=== PATIENT | female | born 1960 | race African-American/Black ===

== ENCOUNTER 2020-12-23 05:30 | Inpatient (IN) | payer OTHER ==
[2020-12-23] MEDS ORDERED: Ondansetron PF 4 MG/2 ML Vial ONE (06:13)
[2020-12-23] MEDS ORDERED: Morphine 4 MG/ML VIAL ONE (06:13)
[2020-12-23 06:19] LABS: #Eosinphils 0.2 10x3/uL (0.0-0.5); #Monocytes 0.8 10x3/uL (0.0-1.1); #Neutrophils 7.8 10x3/uL (1.5-8.4); %Basophils 0.4 % (0.0-2.0); %Eosinophils 1.5 % (0.0-6.0); %Lymphocytes 11.2 % (18.0-47.0); %Monocytes 7.6 % (0.0-10.0); %Neutrophils 78.8 % (40.0-75.0); Hemoglobin 10.4 g/dL (12.0-15.5); Mean Corpuscular HGB CONC 29.5 g/dL (32.0-36.0); Mean Corpuscular Hemoglobin 28.6 pg (27.0-33.0); Mean Corpuscular Volume 96.7 fl (81.6-98.3); Platelet Count 230 10x3/uL (150-450); RBC Distribution Width 19.5 % (11.5-14.5); Red Blood Cell (RBC) Count 3.64 10x6/uL (3.90-5.03); White Blood Cell (WBC) Count 9.9 10x3/uL (3.5-10.5)
[2020-12-23 06:40] LABS: ALT (SGPT) 10 U/L (8-55); AST (SGOT) 16 U/L (5-34); Albumin 3.2 g/dL (3.5-5.0); Alkaline Phosphatase 156 U/L (40-110); Anion Gap 12 mmol/L (10-20); BUN (Urea Nitrogen) 16 mg/dL (9.8-20.1); Bilirubin, Total 0.3 mg/dL (0.2-1.2); Calc. Creatinine Clearance 0 mL/min (70-130); Carbon Dioxide 25 mmol/L (22-29); Chloride 105 mmol/L (98-107); Globulin 2.9 g/dL (2.4-3.5); Glucose 147 mg/dL (70-105); Lipase 18 U/L (8-78); Potassium 4.3 mmol/L (3.5-5.1); Protein, Total 6.1 g/dL (6.0-8.3); Sodium 138 mmol/L (136-145)
[2020-12-23] MEDS ORDERED: Loperamide HCl 2 MG CAP ONE (08:25)
[2020-12-23] MEDS ORDERED: Pantoprazole 40 MG VIAL ONE (10:28)
[2020-12-23] MEDS ORDERED: Ondansetron PF 4 MG/2 ML Vial IVP PRN (11:18)
[2020-12-23] MEDS ORDERED: HumaLOG 300 UNITS/3 ML VIAL SC PRN (11:24)
[2020-12-23] MEDS ORDERED: Dextrose 5% in Water 1,000 ML IV PRN (11:24)
[2020-12-23] MEDS ORDERED: Dextrose 50% Abboject 50 ML SYRINGE SLOW IVP PRN (11:24)
[2020-12-23] MEDS ORDERED: HYDROcodone/Acetaminophen 5/325 mg Tablet PO PRN (11:30)
[2020-12-23 12:22] LABS: Troponin I Less than 0.010 ng/mL (< 0.028)
[2020-12-23] MEDS ORDERED: Morphine 2 MG/ML VIAL SLOW IVP PRN (13:23)
[2020-12-23] MEDS ORDERED: Pantoprazole 80 MG in Sodium Chloride 0.9% 100 ML IVPB SCH (14:00)
[2020-12-23 14:34] VITALS: BMI 37.5
[2020-12-23 16:31] LABS: Troponin I Less than 0.010 ng/mL (< 0.028)
[2020-12-23] MEDS ORDERED: diphenhydrAMINE 30 GM TUBE TOP PRN (16:53)
[2020-12-23] MEDS ORDERED: diphenhydrAMINE 25 MG CAP PO PRN (16:54)
[2020-12-23] MEDS: Gabapentin 300 MG CAP PO SCH ×2 (17:24→20:44)
[2020-12-23] MEDS: Sodium Chloride 0.9% 1,000 ML IV SCH (17:54)
[2020-12-23] MEDS: Metoprolol Tartrate 25 MG TAB PO SCH (20:44)
[2020-12-23] MEDS: Rosuvastatin 20 MG TAB PO SCH (20:44)
[2020-12-23] MEDS ORDERED: Pantoprazole 40 MG VIAL IVP SCH (21:00)
[2020-12-24] MEDS: Levothyroxine Sodium 100 MCG TAB PO SCH (05:49)
[2020-12-24 05:51] LABS: SARS-CoV-2 PCR by NAA Not Detected (NotDetected)
[2020-12-24 06:31] LABS: #Eosinphils 0.2 10x3/uL (0.0-0.5); #Monocytes 0.6 10x3/uL (0.0-1.1); #Neutrophils 5.4 10x3/uL (1.5-8.4); %Basophils 0.4 % (0.0-2.0); %Eosinophils 2.2 % (0.0-6.0); %Lymphocytes 14.9 % (18.0-47.0); %Monocytes 8.5 % (0.0-10.0); %Neutrophils 73.6 % (40.0-75.0); Hemoglobin 8.8 g/dL (12.0-15.5); Mean Corpuscular HGB CONC 29.3 g/dL (32.0-36.0); Mean Corpuscular Hemoglobin 28.6 pg (27.0-33.0); Mean Corpuscular Volume 97.4 fl (81.6-98.3); Mean Platelet Volume 9.5 fl (7.4-10.4); Platelet Count 206 10x3/uL (150-450); RBC Distribution Width 18.9 % (11.5-14.5); Red Blood Cell (RBC) Count 3.08 10x6/uL (3.90-5.03); White Blood Cell (WBC) Count 7.3 10x3/uL (3.5-10.5)
[2020-12-24 06:44] LABS: Anion Gap 13 mmol/L (10-20); BUN (Urea Nitrogen) 13 mg/dL (9.8-20.1); Calc. Creatinine Clearance 84 mL/min (70-130); Calcium 9.1 mg/dL (7.8-10.44); Carbon Dioxide 20 mmol/L (22-29); Chloride 110 mmol/L (98-107); Glucose 90 mg/dL (70-105); Potassium 4.5 mmol/L (3.5-5.1); Sodium 138 mmol/L (136-145)
[2020-12-24] MEDS ORDERED: Aspirin 81 mg Enteric Coated Tablet PO SCH (09:00)
[2020-12-24] MEDS: Spironolactone 25 MG TAB PO SCH (12:00)
[2020-12-24] MEDS: Allopurinol 100 MG TAB PO SCH (12:00)
[2020-12-24] MEDS: Gabapentin 300 MG CAP PO SCH ×3 (12:29→22:13)
[2020-12-24] MEDS: Alogliptin 6.25 MG TAB PO SCH (12:29)
[2020-12-24] MEDS: Acetaminophen 325 MG TAB PO PRN (12:30)
[2020-12-24] MEDS: Metoprolol Tartrate 25 MG TAB PO SCH ×2 (12:30→22:13)
[2020-12-24] MEDS: Sodium Chloride 0.9% 1,000 ML IV SCH ×2 (13:33→22:12)
[2020-12-24] MEDS: Loperamide HCl 2 MG CAP PO PRN (15:55)
[2020-12-24] MEDS: Pantoprazole 40 MG VIAL IVP SCH (22:13)
[2020-12-24] MEDS: Rosuvastatin 20 MG TAB PO SCH (22:13)
[2020-12-25] MEDS: Levothyroxine Sodium 100 MCG TAB PO SCH (05:06)
[2020-12-25 06:39] LABS: Hemoglobin 8.3 g/dL (12.0-15.5)
[2020-12-25] MEDS: Metoprolol Tartrate 25 MG TAB PO SCH ×2 (10:50→20:55)
[2020-12-25] MEDS ORDERED: Lidocaine 1% PF 5 ML VIAL ONE (15:25)
[2020-12-25] MEDS ORDERED: PROPOFOL 60 ML ONE (15:25)
[2020-12-25] MEDS: Allopurinol 100 MG TAB PO SCH (16:54)
[2020-12-25] MEDS: Spironolactone 25 MG TAB PO SCH (16:54)
[2020-12-25] MEDS: Alogliptin 6.25 MG TAB PO SCH (16:54)
[2020-12-25] MEDS: Gabapentin 300 MG CAP PO SCH ×2 (16:55→20:55)
[2020-12-25] MEDS: Lantus 1000 UNITS/10 ML VIAL SC SCH (16:55)
[2020-12-25] MEDS: Pantoprazole 40 MG VIAL IVP SCH (16:57)
[2020-12-25] MEDS: Sodium Chloride 0.9% 1,000 ML IV SCH ×2 (18:23→21:58)
[2020-12-25] MEDS: Pantoprazole 80 MG in Sodium Chloride 0.9% 100 ML IVPB SCH ×2 (18:24→20:55)
[2020-12-25] MEDS: Rosuvastatin 20 MG TAB PO SCH (20:55)
[2020-12-26] MEDS: Levothyroxine Sodium 100 MCG TAB PO SCH (05:24)
[2020-12-26 05:49] LABS: ALT (SGPT) 8 U/L (8-55); AST (SGOT) 16 U/L (5-34); Albumin 2.6 g/dL (3.5-5.0); Alkaline Phosphatase 132 U/L (40-110); Anion Gap 9 mmol/L (10-20); BUN (Urea Nitrogen) 8 mg/dL (9.8-20.1); Bilirubin, Total 0.2 mg/dL (0.2-1.2); Calc. Creatinine Clearance 97 mL/min (70-130); Carbon Dioxide 22 mmol/L (22-29); Chloride 110 mmol/L (98-107); Glucose 122 mg/dL (70-105); Lipase 21 U/L (8-78); Potassium 4.1 mmol/L (3.5-5.1); Protein, Total 5.6 g/dL (6.0-8.3); Sodium 137 mmol/L (136-145)
[2020-12-26 05:51] LABS: #Monocytes 0.5 10x3/uL (0.0-1.1); #Neutrophils 3.1 10x3/uL (1.5-8.4); %Basophils 0.4 % (0.0-2.0); %Eosinophils 6.1 % (0.0-6.0); %Lymphocytes 26.7 % (18.0-47.0); %Monocytes 8.8 % (0.0-10.0); %Neutrophils 57.4 % (40.0-75.0); Hemoglobin 8.8 g/dL (12.0-15.5); Mean Corpuscular HGB CONC 29.7 g/dL (32.0-36.0); Mean Corpuscular Hemoglobin 28.9 pg (27.0-33.0); Mean Platelet Volume 9.3 fl (7.4-10.4); Platelet Count 197 10x3/uL (150-450); RBC Distribution Width 18.1 % (11.5-14.5); Red Blood Cell (RBC) Count 3.05 10x6/uL (3.90-5.03); White Blood Cell (WBC) Count 5.4 10x3/uL (3.5-10.5)
[2020-12-26 05:52] LABS: #Eosinphils 0.3 10x3/uL (0.0-0.5)
[2020-12-26] MEDS: Spironolactone 25 MG TAB PO SCH (09:42)
[2020-12-26] MEDS: Gabapentin 300 MG CAP PO SCH ×3 (09:42→21:21)
[2020-12-26] MEDS: Lantus 1000 UNITS/10 ML VIAL SC SCH (09:43)
[2020-12-26] MEDS: Allopurinol 100 MG TAB PO SCH (09:43)
[2020-12-26] MEDS: Metoprolol Tartrate 25 MG TAB PO SCH ×2 (09:43→21:21)
[2020-12-26] MEDS: Alogliptin 6.25 MG TAB PO SCH (09:43)
[2020-12-26] MEDS: Sodium Chloride 0.9% 1,000 ML IV SCH (16:36)
[2020-12-26] MEDS: Rosuvastatin 20 MG TAB PO SCH (21:21)
[2020-12-27] MEDS: Sodium Chloride 0.9% 1,000 ML IV SCH ×2 (01:36→15:51)
[2020-12-27] MEDS: Acetaminophen 325 MG TAB PO PRN (01:36)
[2020-12-27] MEDS: Levothyroxine Sodium 100 MCG TAB PO SCH (06:04)
[2020-12-27] MEDS: Loperamide HCl 2 MG CAP PO PRN ×2 (06:04→20:28)
[2020-12-27 06:09] LABS: #Eosinphils 0.3 10x3/uL (0.0-0.5); #Monocytes 0.4 10x3/uL (0.0-1.1); %Basophils 0.6 % (0.0-2.0); %Eosinophils 6.5 % (0.0-6.0); %Lymphocytes 27.7 % (18.0-47.0); %Monocytes 7.9 % (0.0-10.0); %Neutrophils 57.1 % (40.0-75.0); Hemoglobin 8.9 g/dL (12.0-15.5); Mean Corpuscular HGB CONC 29.6 g/dL (32.0-36.0); Mean Corpuscular Hemoglobin 29.1 pg (27.0-33.0); Mean Corpuscular Volume 98.4 fl (81.6-98.3); Mean Platelet Volume 8.9 fl (7.4-10.4); Platelet Count 178 10x3/uL (150-450); RBC Distribution Width 17.8 % (11.5-14.5); Red Blood Cell (RBC) Count 3.06 10x6/uL (3.90-5.03); White Blood Cell (WBC) Count 5.2 10x3/uL (3.5-10.5)
[2020-12-27] MEDS: Spironolactone 25 MG TAB PO SCH (09:17)
[2020-12-27] MEDS: Gabapentin 300 MG CAP PO SCH ×3 (09:17→20:28)
[2020-12-27] MEDS: Metoprolol Tartrate 25 MG TAB PO SCH ×2 (09:17→20:28)
[2020-12-27] MEDS: Allopurinol 100 MG TAB PO SCH (09:17)
[2020-12-27] MEDS: Alogliptin 6.25 MG TAB PO SCH (09:18)
[2020-12-27] MEDS: Lantus 1000 UNITS/10 ML VIAL SC SCH (09:18)
[2020-12-27] MEDS: Rosuvastatin 20 MG TAB PO SCH (20:28)
[2020-12-28] MEDS: Sodium Chloride 0.9% 1,000 ML IV SCH ×2 (04:36→12:37)
[2020-12-28] MEDS: Levothyroxine Sodium 100 MCG TAB PO SCH (05:32)
[2020-12-28 06:44] LABS: #Eosinphils 0.4 10x3/uL (0.0-0.5); #Monocytes 0.3 10x3/uL (0.0-1.1); #Neutrophils 2.4 10x3/uL (1.5-8.4); %Basophils 0.7 % (0.0-2.0); %Eosinophils 8.9 % (0.0-6.0); %Lymphocytes 26.9 % (18.0-47.0); %Monocytes 7.8 % (0.0-10.0); %Neutrophils 55.5 % (40.0-75.0); Hemoglobin 8.8 g/dL (12.0-15.5); Mean Corpuscular HGB CONC 29.3 g/dL (32.0-36.0); Mean Corpuscular Hemoglobin 28.8 pg (27.0-33.0); Mean Platelet Volume 9.3 fl (7.4-10.4); Platelet Count 168 10x3/uL (150-450); RBC Distribution Width 17.6 % (11.5-14.5); Red Blood Cell (RBC) Count 3.06 10x6/uL (3.90-5.03); White Blood Cell (WBC) Count 4.4 10x3/uL (3.5-10.5)
[2020-12-28 07:03] LABS: ALT (SGPT) 12 U/L (8-55); AST (SGOT) 26 U/L (5-34); Albumin 2.4 g/dL (3.5-5.0); Alkaline Phosphatase 147 U/L (40-110); Anion Gap 10 mmol/L (10-20); BUN (Urea Nitrogen) 4 mg/dL (9.8-20.1); Bilirubin, Total 0.1 mg/dL (0.2-1.2); Calc. Creatinine Clearance 109 mL/min (70-130); Carbon Dioxide 22 mmol/L (22-29); Chloride 111 mmol/L (98-107); Globulin 2.9 g/dL (2.4-3.5); Glucose 82 mg/dL (70-105); Potassium 4.4 mmol/L (3.5-5.1); Protein, Total 5.3 g/dL (6.0-8.3); Sodium 139 mmol/L (136-145)
[2020-12-28] MEDS: Allopurinol 100 MG TAB PO SCH (08:31)
[2020-12-28] MEDS: Metoprolol Tartrate 25 MG TAB PO SCH (08:31)
[2020-12-28] MEDS: Gabapentin 300 MG CAP PO SCH ×2 (08:31→15:53)
[2020-12-28] MEDS: Spironolactone 25 MG TAB PO SCH (08:31)
[2020-12-28] MEDS: Alogliptin 6.25 MG TAB PO SCH (08:32)
[2020-12-28] MEDS: Lantus 1000 UNITS/10 ML VIAL SC SCH (08:32)
[2020-12-28 16:28] VITALS: BP 109/69; TEMP 97.9
[2020-12-30 13:52] LABS: Routine O & P Final report (.)
== END 2020-12-28 18:15 | disposition home or self-care (01) | DRG 381 ==
LOC: CSHERS 05:30 → CSHTELE 13:32
PROVIDERS: ADMIT Internal Medicine; ATTEND Internal Medicine
PROC: 0DB98ZX Excision of Duodenum, Via Natural or Artificial Opening Endoscopic, Diagnostic (ICD-10-PCS; principal; 2020-12-25)
PROC: 0DB68ZX Excision of Stomach, Via Natural or Artificial Opening Endoscopic, Diagnostic (ICD-10-PCS; 2020-12-25)
DX: K26.1 Acute duodenal ulcer with perforation (principal); J96.11 Chronic respiratory failure with hypoxia; Z20.822 Contact with and (suspected) exposure to COVID-19; I12.9 Hypertensive chronic kidney disease with stage 1 through stage 4 chronic kidney disease, or unspecified chronic kidney disease; E11.22 Type 2 diabetes mellitus with diabetic chronic kidney disease; N18.30 Chronic kidney disease, stage 3 unspecified; E11.42 Type 2 diabetes mellitus with diabetic polyneuropathy; I49.5 Sick sinus syndrome; C50.919 Malignant neoplasm of unspecified site of unspecified female breast; M10.9 Gout, unspecified; E78.5 Hyperlipidemia, unspecified; E03.9 Hypothyroidism, unspecified; I27.20 Pulmonary hypertension, unspecified; D63.1 Anemia in chronic kidney disease; K21.00 Gastro-esophageal reflux disease with esophagitis, without bleeding; K31.89 Other diseases of stomach and duodenum; D86.0 Sarcoidosis of lung; I25.10 Atherosclerotic heart disease of native coronary artery without angina pectoris; Z88.0 Allergy status to penicillin; Z95.0 Presence of cardiac pacemaker; Z99.81 Dependence on supplemental oxygen; Z79.82 Long term (current) use of aspirin; Z79.890 Hormone replacement therapy; Z79.4 Long term (current) use of insulin; Z79.891 Long term (current) use of opiate analgesic; Z79.899 Other long term (current) drug therapy; K70.9 Alcoholic liver disease, unspecified; Z90.49 Acquired absence of other specified parts of digestive tract; Z80.3 Family history of malignant neoplasm of breast; Z80.0 Family history of malignant neoplasm of digestive organs; Z80.8 Family history of malignant neoplasm of other organs or systems; Z83.3 Family history of diabetes mellitus
CPT/HCPCS: 36415; 36416; 71045; 74177; 74246; 80048; 80053; 82941; 83690; 84484; 85014; 85018; 85025; 86316; 87177; 87324; 87449; 87635; 88305; 93005; 94760; 96374; 96375; C9113; J1610; J1642; J2270; J2405; J2704; J3490; J7050; U0003; U0005

== ENCOUNTER 2020-12-31 09:00 | Emergency (ER) | payer OTHER ==
[2020-12-31] MEDS ORDERED: Ondansetron PF 4 MG/2 ML Vial ONE (10:22)
[2020-12-31] MEDS ORDERED: Morphine 4 MG/ML VIAL ONE (10:22)
[2020-12-31] MEDS ORDERED: Pantoprazole 40 MG VIAL ONE (10:23)
[2020-12-31 11:04] LABS: #Eosinphils 0.4 10x3/uL (0.0-0.5); #Monocytes 0.5 10x3/uL (0.0-1.1); #Neutrophils 6.6 10x3/uL (1.5-8.4); %Basophils 0.2 % (0.0-2.0); %Eosinophils 4.7 % (0.0-6.0); %Lymphocytes 13.4 % (18.0-47.0); %Monocytes 5.3 % (0.0-10.0); %Neutrophils 76.2 % (40.0-75.0); Hemoglobin 8.9 g/dL (12.0-15.5); Mean Corpuscular HGB CONC 29.9 g/dL (32.0-36.0); Mean Corpuscular Hemoglobin 29.5 pg (27.0-33.0); Mean Corpuscular Volume 98.7 fl (81.6-98.3); Mean Platelet Volume 9.1 fl (7.4-10.4); Platelet Count 200 10x3/uL (150-450); RBC Distribution Width 17.2 % (11.5-14.5); Red Blood Cell (RBC) Count 3.02 10x6/uL (3.90-5.03); White Blood Cell (WBC) Count 8.6 10x3/uL (3.5-10.5)
[2020-12-31 11:19] LABS: ALT (SGPT) 17 U/L (8-55); AST (SGOT) 26 U/L (5-34); Albumin 2.8 g/dL (3.5-5.0); Alkaline Phosphatase 177 U/L (40-110); Anion Gap 7 mmol/L (10-20); BUN (Urea Nitrogen) 9 mg/dL (9.8-20.1); Bilirubin, Total 0.2 mg/dL (0.2-1.2); Calc. Creatinine Clearance 0 mL/min (70-130); Calcium 9.4 mg/dL (7.8-10.44); Carbon Dioxide 29 mmol/L (22-29); Chloride 105 mmol/L (98-107); Globulin 3.3 g/dL (2.4-3.5); Glucose 129 mg/dL (70-105); Potassium 4.4 mmol/L (3.5-5.1); Protein, Total 6.1 g/dL (6.0-8.3); Sodium 137 mmol/L (136-145)
== END 2020-12-31 13:48 | disposition home or self-care (01) ==
LOC: CSHERS 09:00
DX: K26.9 Duodenal ulcer, unspecified as acute or chronic, without hemorrhage or perforation (principal); K21.9 Gastro-esophageal reflux disease without esophagitis; M10.9 Gout, unspecified; E11.42 Type 2 diabetes mellitus with diabetic polyneuropathy; I10 Essential (primary) hypertension; Z79.4 Long term (current) use of insulin; Z79.82 Long term (current) use of aspirin; Z79.899 Other long term (current) drug therapy
CPT/HCPCS: 74177; 80053; 85025; 96374; 96375; C9113; J1642; J2270; J2405

== ENCOUNTER 2021-01-15 12:29 | Emergency (ER) | payer OTHER ==
[2021-01-15 14:50] LABS: ALT (SGPT) 13 U/L (8-55); AST (SGOT) 19 U/L (5-34); Albumin 2.8 g/dL (3.5-5.0); Alkaline Phosphatase 141 U/L (40-110); Anion Gap 14 mmol/L (10-20); BUN (Urea Nitrogen) 11 mg/dL (9.8-20.1); Bilirubin, Total 0.1 mg/dL (0.2-1.2); CK (CPK) 20 U/L (29-168); Calc. Creatinine Clearance 0 mL/min (70-130); Calcium 8.2 mg/dL (7.8-10.44); Carbon Dioxide 29 mmol/L (22-29); Chloride 100 mmol/L (98-107); Globulin 3.3 g/dL (2.4-3.5); Potassium 3.6 mmol/L (3.5-5.1); Protein, Total 6.1 g/dL (6.0-8.3); Sodium 139 mmol/L (136-145)
[2021-01-15 14:55] LABS: #Eosinphils 0.3 10x3/uL (0.0-0.5); #Monocytes 0.5 10x3/uL (0.0-1.1); #Neutrophils 5.9 10x3/uL (1.5-8.4); %Basophils 0.4 % (0.0-2.0); %Eosinophils 3.8 % (0.0-6.0); %Lymphocytes 16.3 % (18.0-47.0); %Monocytes 6.1 % (0.0-10.0); %Neutrophils 72.5 % (40.0-75.0); Hemoglobin 8.2 g/dL (12.0-15.5); Mean Corpuscular HGB CONC 29.9 g/dL (32.0-36.0); Mean Corpuscular Hemoglobin 28.8 pg (27.0-33.0); Mean Corpuscular Volume 96.1 fl (81.6-98.3); Mean Platelet Volume 8.4 fl (7.4-10.4); Platelet Count 278 10x3/uL (150-450); RBC Distribution Width 16.1 % (11.5-14.5); Red Blood Cell (RBC) Count 2.85 10x6/uL (3.90-5.03); White Blood Cell (WBC) Count 8.1 10x3/uL (3.5-10.5)
[2021-01-15 15:34] LABS: Glucose 44 mg/dL (70-105)
[2021-01-15] MEDS ORDERED: Furosemide 40 MG/4 ML VIAL ONE (19:05)
== END 2021-01-15 19:21 | disposition home or self-care (01) ==
LOC: CSHERS 12:29
DX: K74.60 Unspecified cirrhosis of liver (principal); K21.9 Gastro-esophageal reflux disease without esophagitis; M10.9 Gout, unspecified; E11.42 Type 2 diabetes mellitus with diabetic polyneuropathy; I10 Essential (primary) hypertension; N28.9 Disorder of kidney and ureter, unspecified; G47.30 Sleep apnea, unspecified
CPT/HCPCS: 71045; 71275; 80053; 82550; 83880; 84484; 85025; 85379; 93005; 93970; 96374; 96375; J1940

== ENCOUNTER 2021-05-05 07:52 | Outpatient (CLI) | payer OTHER | END 2021-05-05 07:53 | disposition home or self-care (01) | LOC: CSHMAMMO 07:52 | PROVIDERS: ATTEND Student in an Organized Health Care Education/Training Program | DX: Z13.820 Encounter for screening for osteoporosis (principal); Z91.89 Other specified personal risk factors, not elsewhere classified; M81.0 Age-related osteoporosis without current pathological fracture; M85.851 Other specified disorders of bone density and structure, right thigh | CPT/HCPCS: 77080 ==

== ENCOUNTER 2021-10-13 14:39 | Outpatient (CLI) | payer OTHER | END 2021-10-13 14:40 | disposition home or self-care (01) | LOC: CSHCT 14:39 | PROVIDERS: ATTEND Family Medicine Sports Medicine | DX: S52.501G Unspecified fracture of the lower end of right radius, subsequent encounter for closed fracture with delayed healing (principal); S52.601G Unspecified fracture of lower end of right ulna, subsequent encounter for closed fracture with delayed healing; S52.601K Unspecified fracture of lower end of right ulna, subsequent encounter for closed fracture with nonunion ==

== ENCOUNTER 2021-12-31 11:09 | Emergency (ER) | payer OTHER ==
[2021-12-31 12:53] LABS: PTT 26.6 sec (22.0-33.0); Prothrombin Time 10.9 sec (9.5-12.1)
[2021-12-31 13:02] LABS: ALT (SGPT) 50 U/L (8-55); AST (SGOT) 41 U/L (5-34); Albumin 3.8 g/dL (3.4-4.8); Alkaline Phosphatase 257 U/L (40-110); Anion Gap 19 mmol/L (10-20); BUN (Urea Nitrogen) 36 mg/dL (9.8-20.1); Bilirubin, Total 0.4 mg/dL (0.2-1.2); Calc. Creatinine Clearance 0 mL/min (70-130); Calcium 9.7 mg/dL (7.8-10.44); Carbon Dioxide 32 mmol/L (23-31); Chloride 91 mmol/L (98-107); Globulin 4.5 g/dL (2.4-3.5); Glucose 157 mg/dL (80-115); Potassium 4.3 mmol/L (3.5-5.1); Protein, Total 8.3 g/dL (5.8-8.1); Sodium 138 mmol/L (136-145)
[2021-12-31 13:36] LABS: #Eosinphils 0.2 10x3/uL (0.0-0.5); #Monocytes 0.3 10x3/uL (0.0-1.1); #Neutrophils 7.2 10x3/uL (1.5-8.4); %Basophils 0.3 % (0.0-2.0); %Eosinophils 2.4 % (0.0-6.0); %Lymphocytes 13.5 % (18.0-47.0); %Monocytes 3.7 % (0.0-10.0); %Neutrophils 79.7 % (40.0-75.0); Hemoglobin 12.4 g/dL (12.0-15.5); Mean Corpuscular HGB CONC 30.8 g/dL (32.0-36.0); Mean Corpuscular Hemoglobin 28.1 pg (27.0-33.0); Mean Corpuscular Volume 91.4 fl (81.6-98.3); Mean Platelet Volume 10.1 fl (7.4-10.4); Platelet Count 175 10x3/uL (150-450); RBC Distribution Width 15.4 % (11.5-14.5); Red Blood Cell (RBC) Count 4.41 10x6/uL (3.90-5.03)
[2021-12-31] MEDS ORDERED: traMADol HCl 50 MG TAB ONE (14:36)
== END 2021-12-31 14:40 | disposition home or self-care (01) ==
LOC: CSHERS 11:09
DX: M79.604 Pain in right leg (principal); M79.605 Pain in left leg; K21.9 Gastro-esophageal reflux disease without esophagitis; E11.40 Type 2 diabetes mellitus with diabetic neuropathy, unspecified; M10.9 Gout, unspecified; G47.30 Sleep apnea, unspecified; I10 Essential (primary) hypertension
CPT/HCPCS: 36415; 80053; 85025; 85610; 85730

== ENCOUNTER 2022-04-12 07:40 | Outpatient (CLI) | payer OTHER | END 2022-04-12 07:41 | disposition home or self-care (01) | LOC: CSHULT 07:40 | PROVIDERS: ATTEND Internal Medicine Gastroenterology | DX: K74.60 Unspecified cirrhosis of liver (principal); R94.5 Abnormal results of liver function studies | CPT/HCPCS: 76700 ==

== ENCOUNTER 2022-07-11 10:14 | Outpatient (CLI) | payer OTHER | END 2022-07-11 10:15 | disposition home or self-care (01) | LOC: CSHCT 10:14 | PROVIDERS: ATTEND Internal Medicine Pulmonary Disease | DX: I27.20 Pulmonary hypertension, unspecified (principal); D86.9 Sarcoidosis, unspecified; J47.9 Bronchiectasis, uncomplicated; K74.60 Unspecified cirrhosis of liver | CPT/HCPCS: 71250 ==

== ENCOUNTER 2022-09-06 10:50 | Inpatient (IN) | payer OTHER ==
[2022-09-06 11:29] LABS: #Eosinphils 0.3 10x3/uL (0.0-0.5); #Monocytes 0.3 10x3/uL (0.0-1.1); #Neutrophils 5.7 10x3/uL (1.5-8.4); %Basophils 0.4 % (0.0-2.0); %Eosinophils 3.8 % (0.0-6.0); %Lymphocytes 14.4 % (18.0-47.0); %Monocytes 4.3 % (0.0-10.0); %Neutrophils 76.7 % (40.0-75.0); Hemoglobin 11.2 g/dL (12.0-15.5); Mean Corpuscular HGB CONC 30.9 g/dL (32.0-36.0); Mean Corpuscular Hemoglobin 28.4 pg (27.0-33.0); Mean Corpuscular Volume 92.1 fl (81.6-98.3); Mean Platelet Volume 8.9 fl (7.4-10.4); Platelet Count 236 10x3/uL (150-450); RBC Distribution Width 16.7 % (11.5-14.5); Red Blood Cell (RBC) Count 3.94 10x6/uL (3.90-5.03); White Blood Cell (WBC) Count 7.4 10x3/uL (3.5-10.5)
[2022-09-06 11:34] LABS: ALT (SGPT) 13 U/L (8-55); AST (SGOT) 23 U/L (5-34); Albumin 3.4 g/dL (3.4-4.8); Alkaline Phosphatase 131 U/L (40-110); Anion Gap 14 mmol/L (10-20); BUN (Urea Nitrogen) 28 mg/dL (9.8-20.1); Bilirubin, Total 0.3 mg/dL (0.2-1.2); Calc. Creatinine Clearance 0 mL/min (70-130); Calcium 8.8 mg/dL (7.8-10.44); Carbon Dioxide 26 mmol/L (23-31); Chloride 102 mmol/L (98-107); Estimated GFR 31; Globulin 3.3 g/dL (2.4-3.5); Glucose 219 mg/dL (80-115); Potassium 4.3 mmol/L (3.5-5.1); Protein, Total 6.7 g/dL (5.8-8.1); Sodium 138 mmol/L (136-145)
[2022-09-06] MEDS ORDERED: Ondansetron ODT 4 MG TAB PO PRN (13:03)
[2022-09-06] MEDS ORDERED: Ondansetron PF 4 MG/2 ML Vial IVP PRN (13:03)
[2022-09-06] MEDS ORDERED: Dextrose 5% in Water 1,000 ML IV PRN (13:07)
[2022-09-06] MEDS ORDERED: HumaLOG 300 UNITS/3 ML VIAL SC PRN (13:07)
[2022-09-06] MEDS ORDERED: Dextrose 50% Abboject 50 ML SYRINGE SLOW IVP PRN (13:07)
[2022-09-06] MEDS ORDERED: Furosemide 40 MG/4 ML VIAL ONE (13:12)
[2022-09-06 16:09] LABS: SARS-CoV-2 NAA Rapid Test Not Detected (NotDetected)
[2022-09-06 21:39] VITALS: BMI 37.1
[2022-09-07] MEDS: Acetaminophen 325 MG TAB PO PRN (03:32)
[2022-09-07] MEDS: Levothyroxine Sodium 100 MCG TAB PO SCH (05:08)
[2022-09-07] MEDS: HumaLOG 300 UNITS/3 ML VIAL SC PRN ×2 (05:33→17:06)
[2022-09-07 05:56] LABS: #Eosinphils 0.3 10x3/uL (0.0-0.5); #Monocytes 0.3 10x3/uL (0.0-1.1); #Neutrophils 6.5 10x3/uL (1.5-8.4); %Basophils 0.3 % (0.0-2.0); %Eosinophils 3.1 % (0.0-6.0); %Lymphocytes 11.2 % (18.0-47.0); %Monocytes 3.9 % (0.0-10.0); %Neutrophils 81.2 % (40.0-75.0); Hemoglobin 10.4 g/dL (12.0-15.5); Mean Corpuscular HGB CONC 30.5 g/dL (32.0-36.0); Mean Corpuscular Volume 91.7 fl (81.6-98.3); Platelet Count 238 10x3/uL (150-450); RBC Distribution Width 16.3 % (11.5-14.5); Red Blood Cell (RBC) Count 3.72 10x6/uL (3.90-5.03)
[2022-09-07 06:03] LABS: Anion Gap 14 mmol/L (10-20); BUN (Urea Nitrogen) 24 mg/dL (9.8-20.1); Calc. Creatinine Clearance 49 mL/min (70-130); Calcium 8.9 mg/dL (7.8-10.44); Carbon Dioxide 28 mmol/L (23-31); Chloride 102 mmol/L (98-107); Estimated GFR 37; Glucose 184 mg/dL (80-115); Sodium 140 mmol/L (136-145)
[2022-09-07] MEDS ORDERED: Lantus 1000 UNITS/10 ML VIAL SC SCH (09:00)
[2022-09-07] MEDS ORDERED: traMADol HCl 50 MG TAB PO PRN (14:19)
[2022-09-07] MEDS ORDERED: Furosemide 40 MG/4 ML VIAL SLOW IVP SCH (15:00)
[2022-09-07] MEDS: Gabapentin 300 MG CAP PO SCH (16:56)
[2022-09-08] MEDS: Metoprolol Tartrate 25 MG TAB PO SCH ×3 (00:01→21:44)
[2022-09-08] MEDS: Gabapentin 300 MG CAP PO SCH ×4 (00:01→21:44)
[2022-09-08] MEDS: Rosuvastatin 20 MG TAB PO SCH ×2 (00:01→21:44)
[2022-09-08] MEDS: methylPREDNISolone Sod Succ 40 MG VIAL IVP SCH ×2 (00:03→08:45)
[2022-09-08] MEDS: Lantus 1000 UNITS/10 ML VIAL SC SCH ×3 (00:03→21:44)
[2022-09-08] MEDS: Acetaminophen 325 MG TAB PO PRN ×2 (00:13→08:42)
[2022-09-08] MEDS: Levothyroxine Sodium 100 MCG TAB PO SCH (05:45)
[2022-09-08] MEDS: Furosemide 40 MG/4 ML VIAL SLOW IVP SCH ×2 (05:46→13:03)
[2022-09-08] MEDS: HumaLOG 300 UNITS/3 ML VIAL SC PRN ×2 (06:01→11:44)
[2022-09-08 06:54] LABS: #Monocytes 0.1 10x3/uL (0.0-1.1); #Neutrophils 7.9 10x3/uL (1.5-8.4); %Basophils 0.1 % (0.0-2.0); %Monocytes 0.6 % (0.0-10.0); %Neutrophils 94.1 % (40.0-75.0); Hemoglobin 11.7 g/dL (12.0-15.5); Mean Corpuscular HGB CONC 30.4 g/dL (32.0-36.0); Mean Corpuscular Hemoglobin 28.1 pg (27.0-33.0); Mean Corpuscular Volume 92.3 fl (81.6-98.3); Mean Platelet Volume 10.6 fl (7.4-10.4); Platelet Count 168 10x3/uL (150-450); RBC Distribution Width 16.5 % (11.5-14.5); Red Blood Cell (RBC) Count 4.17 10x6/uL (3.90-5.03); White Blood Cell (WBC) Count 8.4 10x3/uL (3.5-10.5)
[2022-09-08 07:02] LABS: Anion Gap 14 mmol/L (10-20); BUN (Urea Nitrogen) 21 mg/dL (9.8-20.1); Calc. Creatinine Clearance 56 mL/min (70-130); Calcium 9.6 mg/dL (7.8-10.44); Carbon Dioxide 28 mmol/L (23-31); Chloride 101 mmol/L (98-107); Estimated GFR 44; Glucose 283 mg/dL (80-115); Potassium 4.7 mmol/L (3.5-5.1); Sodium 138 mmol/L (136-145)
[2022-09-08] MEDS: Spironolactone 25 MG TAB PO SCH (08:42)
[2022-09-08] MEDS: Aspirin Chewable 81 MG TAB PO SCH (08:43)
[2022-09-08] MEDS: Allopurinol 100 MG TAB PO SCH (08:43)
[2022-09-08] MEDS: Empagliflozin 25 MG TAB PO SCH (08:43)
[2022-09-09] MEDS: Furosemide 40 MG/4 ML VIAL SLOW IVP SCH (05:15)
[2022-09-09] MEDS: Levothyroxine Sodium 100 MCG TAB PO SCH (05:15)
[2022-09-09 05:40] LABS: Anion Gap 18 mmol/L (10-20); BUN (Urea Nitrogen) 31 mg/dL (9.8-20.1); Calc. Creatinine Clearance 49 mL/min (70-130); Calcium 10.2 mg/dL (7.8-10.44); Carbon Dioxide 26 mmol/L (23-31); Chloride 97 mmol/L (98-107); Estimated GFR 37; Glucose 229 mg/dL (80-115); Potassium 4.3 mmol/L (3.5-5.1); Sodium 137 mmol/L (136-145)
[2022-09-09 06:16] LABS: #Monocytes 0.6 10x3/uL (0.0-1.1); #Neutrophils 10.4 10x3/uL (1.5-8.4); %Basophils 0.2 % (0.0-2.0); %Eosinophils 0.3 % (0.0-6.0); %Lymphocytes 8.1 % (18.0-47.0); %Monocytes 4.8 % (0.0-10.0); %Neutrophils 86.1 % (40.0-75.0); Hemoglobin 11.5 g/dL (12.0-15.5); Mean Corpuscular HGB CONC 30.7 g/dL (32.0-36.0); Mean Corpuscular Volume 91.2 fl (81.6-98.3); Mean Platelet Volume 9.4 fl (7.4-10.4); Platelet Count 260 10x3/uL (150-450); RBC Distribution Width 16.3 % (11.5-14.5); Red Blood Cell (RBC) Count 4.11 10x6/uL (3.90-5.03); White Blood Cell (WBC) Count 12.1 10x3/uL (3.5-10.5)
[2022-09-09] MEDS: HumaLOG 300 UNITS/3 ML VIAL SC PRN (07:44)
[2022-09-09] MEDS: Empagliflozin 25 MG TAB PO SCH (09:01)
[2022-09-09] MEDS: Gabapentin 300 MG CAP PO SCH (09:01)
[2022-09-09] MEDS: Aspirin Chewable 81 MG TAB PO SCH (09:01)
[2022-09-09] MEDS: Allopurinol 100 MG TAB PO SCH (09:02)
[2022-09-09] MEDS: Spironolactone 25 MG TAB PO SCH (09:02)
[2022-09-09] MEDS: Metoprolol Tartrate 25 MG TAB PO SCH (09:02)
[2022-09-09] MEDS: Lantus 1000 UNITS/10 ML VIAL SC SCH (09:02)
[2022-09-09 10:46] VITALS: BP 137/82; TEMP 97.8
== END 2022-09-09 11:45 | disposition home or self-care (01) | DRG 196 ==
LOC: CSHERS 10:50 → CSHERHOLD 15:04 → CSHTELE 21:40
PROVIDERS: ADMIT Family Medicine; ATTEND Family Medicine
DX: D86.89 Sarcoidosis of other sites (principal); J96.21 Acute and chronic respiratory failure with hypoxia; I13.0 Hypertensive heart and chronic kidney disease with heart failure and stage 1 through stage 4 chronic kidney disease, or unspecified chronic kidney disease; I50.32 Chronic diastolic (congestive) heart failure; E11.22 Type 2 diabetes mellitus with diabetic chronic kidney disease; E11.40 Type 2 diabetes mellitus with diabetic neuropathy, unspecified; E78.5 Hyperlipidemia, unspecified; E03.9 Hypothyroidism, unspecified; Z96.1 Presence of intraocular lens; N18.32 Chronic kidney disease, stage 3b; I27.20 Pulmonary hypertension, unspecified; I25.10 Atherosclerotic heart disease of native coronary artery without angina pectoris; K21.9 Gastro-esophageal reflux disease without esophagitis; Z20.822 Contact with and (suspected) exposure to COVID-19; Z96.612 Presence of left artificial shoulder joint; Z85.3 Personal history of malignant neoplasm of breast; Z90.11 Acquired absence of right breast and nipple; Z99.81 Dependence on supplemental oxygen; Z95.810 Presence of automatic (implantable) cardiac defibrillator; Z88.0 Allergy status to penicillin; Z98.42 Cataract extraction status, left eye; Z88.8 Allergy status to other drugs, medicaments and biological substances; Z98.41 Cataract extraction status, right eye; Z79.899 Other long term (current) drug therapy; Z80.0 Family history of malignant neoplasm of digestive organs; Z79.890 Hormone replacement therapy; Z79.82 Long term (current) use of aspirin; Z90.49 Acquired absence of other specified parts of digestive tract; Z80.42 Family history of malignant neoplasm of prostate; Z98.890 Other specified postprocedural states
CPT/HCPCS: 36415; 36416; 71045; 80048; 80053; 83880; 84484; 85025; 93005; 94640; 94760; J1815; J1940; J2920; J7620; U0002

== ENCOUNTER 2022-12-07 09:46 | Emergency (ER) | payer OTHER ==
[2022-12-07] MEDS ORDERED: Ondansetron PF 4 MG/2 ML Vial ONE ×2 (10:53→13:18)
[2022-12-07 11:24] LABS: #Eosinphils 0.2 10x3/uL (0.0-0.5); #Monocytes 0.3 10x3/uL (0.0-1.1); #Neutrophils 7.8 10x3/uL (1.5-8.4); %Basophils 0.3 % (0.0-2.0); %Eosinophils 2.6 % (0.0-6.0); %Lymphocytes 10.6 % (18.0-47.0); %Monocytes 3.3 % (0.0-10.0); %Neutrophils 82.8 % (40.0-75.0); Hemoglobin 12.7 g/dL (12.0-15.5); Mean Corpuscular HGB CONC 30.6 g/dL (32.0-36.0); Mean Corpuscular Hemoglobin 28.3 pg (27.0-33.0); Mean Corpuscular Volume 92.6 fl (81.6-98.3); Mean Platelet Volume 9.5 fl (7.4-10.4); Platelet Count 243 10x3/uL (150-450); RBC Distribution Width 18.2 % (11.5-14.5); Red Blood Cell (RBC) Count 4.48 10x6/uL (3.90-5.03); White Blood Cell (WBC) Count 9.4 10x3/uL (3.5-10.5)
[2022-12-07 11:48] LABS: ALT (SGPT) 15 U/L (8-55); AST (SGOT) 23 U/L (5-34); Albumin 3.8 g/dL (3.4-4.8); Alkaline Phosphatase 93 U/L (40-110); Anion Gap 19 mmol/L (10-20); BUN (Urea Nitrogen) 50 mg/dL (9.8-20.1); Bilirubin, Total 0.4 mg/dL (0.2-1.2); Calc. Creatinine Clearance 0 mL/min (70-130); Calcium 9.8 mg/dL (7.8-10.44); Carbon Dioxide 32 mmol/L (23-31); Chloride 90 mmol/L (98-107); Estimated GFR 33; Globulin 3.7 g/dL (2.4-3.5); Glucose 154 mg/dL (80-115); Lipase 36 U/L (8-78); Potassium 3.6 mmol/L (3.5-5.1); Protein, Total 7.5 g/dL (5.8-8.1); Sodium 137 mmol/L (136-145)
[2022-12-07] MEDS ORDERED: Acetaminophen 500 MG TAB ONE (13:22)
[2022-12-07] MEDS ORDERED: Iopamidol 300 61% 100 ML VIAL FS ONE (18:13)
== END 2022-12-07 13:28 | disposition home or self-care (01) ==
LOC: CSHERS 09:46
DX: R11.2 Nausea with vomiting, unspecified (principal); R10.9 Unspecified abdominal pain; I11.0 Hypertensive heart disease with heart failure; I50.9 Heart failure, unspecified; E78.5 Hyperlipidemia, unspecified; E11.9 Type 2 diabetes mellitus without complications; K21.9 Gastro-esophageal reflux disease without esophagitis; I25.10 Atherosclerotic heart disease of native coronary artery without angina pectoris; Z79.899 Other long term (current) drug therapy; Z79.82 Long term (current) use of aspirin; Z79.84 Long term (current) use of oral hypoglycemic drugs
CPT/HCPCS: 36415; 71045; 74177; 80053; 83690; 84484; 85025; 93005; 96374; J2405; Q9967

== ENCOUNTER 2023-05-11 08:24 | Outpatient (CLI) | payer OTHER | END 2023-05-11 08:25 | disposition home or self-care (01) | LOC: CSHWCC 08:24 | PROVIDERS: ATTEND Nurse Practitioner Family | DX: R60.0 Localized edema (principal); I87.313 Chronic venous hypertension (idiopathic) with ulcer of bilateral lower extremity; L97.822 Non-pressure chronic ulcer of other part of left lower leg with fat layer exposed; L97.812 Non-pressure chronic ulcer of other part of right lower leg with fat layer exposed | CPT/HCPCS: 29581; 99203; G0463 ==

== ENCOUNTER 2023-07-10 14:06 | Emergency (ER) | payer OTHER ==
[2023-07-10 15:14] LABS: #Eosinphils 0.3 10x3/uL (0.0-0.5); #Monocytes 0.3 10x3/uL (0.0-1.1); #Neutrophils 5.5 10x3/uL (1.5-8.4); %Basophils 0.4 % (0.0-2.0); %Eosinophils 3.5 % (0.0-6.0); %Lymphocytes 14.4 % (18.0-47.0); %Monocytes 3.7 % (0.0-10.0); %Neutrophils 77.6 % (40.0-75.0); Hematocrit 35.5 % (34.9-44.5); Mean Corpuscular Hemoglobin 28.6 pg (27.0-33.0); Mean Corpuscular Volume 92.4 fl (81.6-98.3); Mean Platelet Volume 9.2 fl (7.4-10.4); Platelet Count 284 10x3/uL (150-450); RBC Distribution Width 15.8 % (11.5-14.5); Red Blood Cell (RBC) Count 3.84 10x6/uL (3.90-5.03); White Blood Cell (WBC) Count 7.1 10x3/uL (3.5-10.5)
[2023-07-10 15:22] LABS: ALT (SGPT) 11 U/L (8-55); AST (SGOT) 22 U/L (5-34); Albumin 3.5 g/dL (3.4-4.8); Alkaline Phosphatase 94 U/L (40-110); Anion Gap 16 mmol/L (10-20); BUN (Urea Nitrogen) 22 mg/dL (9.8-20.1); Bilirubin, Total 0.2 mg/dL (0.2-1.2); Calc. Creatinine Clearance 0 mL/min (70-130); Calcium 8.3 mg/dL (7.8-10.44); Carbon Dioxide 24 mmol/L (23-31); Chloride 103 mmol/L (98-107); Estimated GFR 40; Globulin 3.5 g/dL (2.4-3.5); Glucose 138 mg/dL (80-115); Potassium 4.1 mmol/L (3.5-5.1); Sodium 139 mmol/L (136-145)
[2023-07-10 15:28] LABS: Troponin I Less than 0.010 ng/mL (< 0.028)
== END 2023-07-10 16:30 | disposition home or self-care (01) ==
LOC: CSHERS 14:06
DX: E11.22 Type 2 diabetes mellitus with diabetic chronic kidney disease (principal); N18.6 End stage renal disease; I13.2 Hypertensive heart and chronic kidney disease with heart failure and with stage 5 chronic kidney disease, or end stage renal disease; M79.605 Pain in left leg; M79.604 Pain in right leg; E78.5 Hyperlipidemia, unspecified; K21.9 Gastro-esophageal reflux disease without esophagitis; I25.10 Atherosclerotic heart disease of native coronary artery without angina pectoris; I50.9 Heart failure, unspecified
CPT/HCPCS: 36416; 71045; 80053; 83880; 84484; 85025; 93005

== ENCOUNTER 2023-08-07 09:29 | Emergency (ER) | payer OTHER, SELFPAY ==
[2023-08-07 11:52] LABS: #Eosinphils 0.2 10x3/uL (0.0-0.5); #Monocytes 0.4 10x3/uL (0.0-1.1); #Neutrophils 5.5 10x3/uL (1.5-8.4); %Basophils 0.1 % (0.0-2.0); %Eosinophils 2.3 % (0.0-6.0); %Monocytes 5.1 % (0.0-10.0); %Neutrophils 79.1 % (40.0-75.0); Hematocrit 34.7 % (34.9-44.5); Hemoglobin 10.4 g/dL (12.0-15.5); Mean Corpuscular Hemoglobin 28.7 pg (27.0-33.0); Mean Corpuscular Volume 95.9 fl (81.6-98.3); Mean Platelet Volume 9.1 fl (7.4-10.4); Platelet Count 217 10x3/uL (150-450); RBC Distribution Width 16.4 % (11.5-14.5); Red Blood Cell (RBC) Count 3.62 10x6/uL (3.90-5.03)
[2023-08-07 12:08] LABS: ALT (SGPT) 7 U/L (8-55); AST (SGOT) 14 U/L (5-34); Albumin 3.4 g/dL (3.4-4.8); Alkaline Phosphatase 111 U/L (40-110); Anion Gap 13 mmol/L (10-20); BUN (Urea Nitrogen) 15 mg/dL (9.8-20.1); Bilirubin, Total 0.4 mg/dL (0.2-1.2); Calc. Creatinine Clearance 0 mL/min (70-130); Calcium 8.3 mg/dL (7.8-10.44); Carbon Dioxide 22 mmol/L (23-31); Chloride 110 mmol/L (98-107); Estimated GFR 52; Globulin 3.3 g/dL (2.4-3.5); Glucose 137 mg/dL (80-115); Magnesium 1.7 mg/dL (1.6-2.6); Potassium 4.5 mmol/L (3.5-5.1); Protein, Total 6.7 g/dL (5.8-8.1); Sodium 140 mmol/L (136-145)
[2023-08-07 12:15] LABS: Troponin I Less than 0.010 ng/mL (< 0.028)
[2023-08-07 14:37] LABS: Bilirubin Neg (Negative); Blood, Urine 50 (Negative); Clarity Slightly Cloudy (Clear); Glucose, Urine (Dipstick) Normal (Negative); Ketone, Urine Negative (Negative); Leukocyte 25 (Negative); Nitrite Negative (Negative); Protein, Urine (Dipstick) 100 mg/dl (Neg-Trace)
[2023-08-07 14:58] LABS: Bacteria/HPF None Seen HPF (None Seen); CAUTI Indications for Culture Pelvic or flank pain; RBC/HPF 0-3 HPF (0-3); Squamous Epithelial 0-3 HPF (0-3); WBC/HPF 0-3 HPF (0-3)
[2023-08-07 14:59] LABS: Urine Culture Reflex No No
== END 2023-08-07 15:48 | disposition home or self-care (01) ==
LOC: CSHERS 09:29
DX: I87.8 Other specified disorders of veins (principal); I25.10 Atherosclerotic heart disease of native coronary artery without angina pectoris; K21.9 Gastro-esophageal reflux disease without esophagitis; E78.5 Hyperlipidemia, unspecified; I13.2 Hypertensive heart and chronic kidney disease with heart failure and with stage 5 chronic kidney disease, or end stage renal disease; E11.22 Type 2 diabetes mellitus with diabetic chronic kidney disease; N18.6 End stage renal disease; I50.9 Heart failure, unspecified; Z99.2 Dependence on renal dialysis
CPT/HCPCS: 36415; 71045; 80053; 81001; 83735; 83880; 84484; 85025; 93005

== ENCOUNTER 2023-08-10 10:22 | Outpatient (CLI) | payer SELFPAY | END 2023-08-10 10:23 | disposition home or self-care (01) | LOC: CSHWCC 10:22 | PROVIDERS: ATTEND Physician Assistant | DX: I87.313 Chronic venous hypertension (idiopathic) with ulcer of bilateral lower extremity (principal); I89.0 Lymphedema, not elsewhere classified; E10.22 Type 1 diabetes mellitus with diabetic chronic kidney disease; N18.6 End stage renal disease; L97.919 Non-pressure chronic ulcer of unspecified part of right lower leg with unspecified severity; L97.929 Non-pressure chronic ulcer of unspecified part of left lower leg with unspecified severity | CPT/HCPCS: 29581; 74183; 99213; G0463 ==

== ENCOUNTER 2023-08-14 13:15 | Outpatient (CLI) | payer OTHER | END 2023-08-14 13:16 | disposition home or self-care (01) | LOC: CSHWCC 13:15 | PROVIDERS: ATTEND Physician Assistant | DX: I87.313 Chronic venous hypertension (idiopathic) with ulcer of bilateral lower extremity (principal); E10.22 Type 1 diabetes mellitus with diabetic chronic kidney disease; N18.6 End stage renal disease; I89.0 Lymphedema, not elsewhere classified | CPT/HCPCS: 29581 ==

== ENCOUNTER 2023-08-18 11:22 | Outpatient (CLI) | payer OTHER | END 2023-08-18 11:23 | disposition home or self-care (01) | LOC: CSHWCC 11:22 | PROVIDERS: ATTEND Physician Assistant | DX: I87.313 Chronic venous hypertension (idiopathic) with ulcer of bilateral lower extremity (principal); E10.22 Type 1 diabetes mellitus with diabetic chronic kidney disease; N18.6 End stage renal disease; I89.0 Lymphedema, not elsewhere classified | CPT/HCPCS: 29581 ==

== ENCOUNTER 2023-08-21 13:02 | Outpatient (CLI) | payer OTHER | END 2023-08-21 13:03 | disposition home or self-care (01) | LOC: CSHWCC 13:02 | PROVIDERS: ATTEND Physician Assistant | DX: I87.313 Chronic venous hypertension (idiopathic) with ulcer of bilateral lower extremity (principal); E10.22 Type 1 diabetes mellitus with diabetic chronic kidney disease; N18.6 End stage renal disease; I89.0 Lymphedema, not elsewhere classified | CPT/HCPCS: 29581 ==

== ENCOUNTER 2023-08-23 10:31 | Outpatient (CLI) | payer OTHER | END 2023-08-23 10:32 | disposition home or self-care (01) | LOC: CSHWCC 10:31 | PROVIDERS: ATTEND Physician Assistant | DX: I87.313 Chronic venous hypertension (idiopathic) with ulcer of bilateral lower extremity (principal); E10.22 Type 1 diabetes mellitus with diabetic chronic kidney disease; N18.6 End stage renal disease; I89.0 Lymphedema, not elsewhere classified | CPT/HCPCS: 29581 ==

== ENCOUNTER 2023-08-29 14:02 | Outpatient (CLI) | payer OTHER | END 2023-08-29 14:03 | disposition home or self-care (01) | LOC: CSHWCC 14:02 | PROVIDERS: ATTEND Preventive Medicine Undersea and Hyperbaric Medicine | DX: I87.313 Chronic venous hypertension (idiopathic) with ulcer of bilateral lower extremity (principal); I89.0 Lymphedema, not elsewhere classified; L97.919 Non-pressure chronic ulcer of unspecified part of right lower leg with unspecified severity; L97.929 Non-pressure chronic ulcer of unspecified part of left lower leg with unspecified severity; E10.22 Type 1 diabetes mellitus with diabetic chronic kidney disease; N18.6 End stage renal disease | CPT/HCPCS: 29581 ==

== ENCOUNTER 2023-10-17 10:43 | Outpatient (CLI) | payer SELFPAY | END 2023-10-17 10:44 | disposition home or self-care (01) | LOC: CSHWCC 10:43 | PROVIDERS: ATTEND Preventive Medicine Undersea and Hyperbaric Medicine | DX: I87.311 Chronic venous hypertension (idiopathic) with ulcer of right lower extremity (principal); I89.0 Lymphedema, not elsewhere classified; E10.22 Type 1 diabetes mellitus with diabetic chronic kidney disease; N18.6 End stage renal disease ==

== ENCOUNTER 2023-10-24 14:46 | Outpatient (CLI) | payer SELFPAY | END 2023-10-24 14:47 | disposition home or self-care (01) | LOC: CSHWCC 14:46 | PROVIDERS: ATTEND Physician Assistant | DX: I87.311 Chronic venous hypertension (idiopathic) with ulcer of right lower extremity (principal); L97.919 Non-pressure chronic ulcer of unspecified part of right lower leg with unspecified severity; E10.22 Type 1 diabetes mellitus with diabetic chronic kidney disease; N18.6 End stage renal disease; I89.0 Lymphedema, not elsewhere classified; Z99.2 Dependence on renal dialysis | CPT/HCPCS: 99213; G0463 ==

== ENCOUNTER 2024-02-08 10:43 | Outpatient (CLI) | payer OTHER | END 2024-02-08 10:44 | disposition home or self-care (01) | LOC: CSHWCC 10:43 | PROVIDERS: ATTEND Nurse Practitioner Family | DX: E11.622 Type 2 diabetes mellitus with other skin ulcer (principal); L97.212 Non-pressure chronic ulcer of right calf with fat layer exposed; I87.311 Chronic venous hypertension (idiopathic) with ulcer of right lower extremity; I89.0 Lymphedema, not elsewhere classified | CPT/HCPCS: 99212; G0463 ==

== ENCOUNTER 2024-02-23 10:58 | Outpatient (CLI) | payer BC | END 2024-02-23 10:59 | disposition home or self-care (01) | LOC: CSHULT 10:58 | PROVIDERS: ATTEND Internal Medicine | DX: K74.60 Unspecified cirrhosis of liver (principal); K75.81 Nonalcoholic steatohepatitis (NASH); R60.0 Localized edema; K59.09 Other constipation | CPT/HCPCS: 76700 ==

== ENCOUNTER 2024-08-18 02:21 | Emergency (ER) | payer BC ==
[2024-08-18] MEDS ORDERED: Acetaminophen 500 MG TAB ONE (02:52)
[2024-08-18 03:19] LABS: #Basophils 0.02 10x3/uL (0.0-0.2); #Eosinophils 0.16 10x3/uL (0.0-0.5); #Monocytes 0.27 10x3/uL (0.0-1.1); #Neutrophils 6.77 10x3/uL (1.5-8.4); %Basophils 0.3 % (0.0-2.0); %Lymphocytes 7.6 % (18.0-47.0); %Monocytes 3.4 % (0.0-10.0); %Neutrophils 86.2 % (40.0-75.0); Hematocrit 35.2 % (34.9-44.5); Hemoglobin 10.2 g/dL (12.0-15.5); Mean Corpuscular Hemoglobin 26.7 pg (27.0-33.0); Mean Corpuscular Volume 92.1 fL (81.6-98.3); Mean Platelet Volume 8.7 fL (7.4-10.4); Platelet Count 147 10x3/uL (150-450); RBC Distribution Width 16.7 % (11.5-14.5); Red Blood Cell (RBC) Count 3.82 10x6/uL (3.90-5.03); White Blood Cell (WBC) Count 7.9 10x3/uL (3.5-10.5)
[2024-08-18 03:23] LABS: INR-International Normal Ratio 1.1; PTT 29.3 sec (22.0-33.0); Prothrombin Time 11.5 sec (9.5-12.1)
[2024-08-18 03:28] LABS: ALT (SGPT) 17 U/L (8-55); AST (SGOT) 20 U/L (5-34); Albumin 2.9 g/dL (3.4-4.8); Alkaline Phosphatase 91 U/L (40-110); Anion Gap 14 mmol/L (10-20); BUN (Urea Nitrogen) 33 mg/dL (9.8-20.1); Bilirubin, Total 0.4 mg/dL (0.2-1.2); Calc. Creatinine Clearance 0 mL/min (70-130); Calcium 10.3 mg/dL (7.8-10.44); Carbon Dioxide 28 mmol/L (23-31); Chloride 103 mmol/L (98-107); Estimated GFR 26; Globulin 4.2 g/dL (2.4-3.5); Glucose 136 mg/dL (80-115); Lipase 22 U/L (8-78); Magnesium 1.3 mg/dL (1.6-2.6); Potassium 3.7 mmol/L (3.5-5.1); Protein, Total 7.1 g/dL (5.8-8.1); Sodium 141 mmol/L (136-145)
[2024-08-18 03:34] LABS: Troponin I Less than 0.010 ng/mL (< 0.028)
== END 2024-08-18 04:01 | disposition home or self-care (01) ==
LOC: CSHERS 02:21
DX: B34.9 Viral infection, unspecified (principal); I13.2 Hypertensive heart and chronic kidney disease with heart failure and with stage 5 chronic kidney disease, or end stage renal disease; I50.9 Heart failure, unspecified; N18.6 End stage renal disease; E11.22 Type 2 diabetes mellitus with diabetic chronic kidney disease; K21.9 Gastro-esophageal reflux disease without esophagitis; E78.5 Hyperlipidemia, unspecified; Z79.82 Long term (current) use of aspirin; Z79.4 Long term (current) use of insulin; Z79.899 Other long term (current) drug therapy
CPT/HCPCS: 36415; 36416; 71045; 80053; 83605; 83690; 83735; 83880; 84484; 85025; 85610; 85730; 87428; 93005

== ENCOUNTER 2024-10-05 13:49 | Inpatient (IN) | payer BC ==
[2024-10-05 14:57] LABS: #Basophils 0.01 10x3/uL (0.0-0.2); #Eosinophils 0.24 10x3/uL (0.0-0.5); #Monocytes 0.27 10x3/uL (0.0-1.1); #Neutrophils 5.03 10x3/uL (1.5-8.4); %Basophils 0.2 % (0.0-2.0); %Eosinophils 3.6 % (0.0-6.0); %Lymphocytes 15.5 % (18.0-47.0); %Monocytes 4.1 % (0.0-10.0); %Neutrophils 76.3 % (40.0-75.0); Hematocrit 39.8 % (34.9-44.5); Hemoglobin 11.7 g/dL (12.0-15.5); Mean Corpuscular HGB CONC 29.4 g/dL (32.0-36.0); Mean Corpuscular Hemoglobin 27.7 pg (27.0-33.0); Mean Corpuscular Volume 94.1 fL (81.6-98.3); Mean Platelet Volume 9.1 fL (7.4-10.4); Platelet Count 173 10x3/uL (150-450); Red Blood Cell (RBC) Count 4.23 10x6/uL (3.90-5.03); White Blood Cell (WBC) Count 6.6 10x3/uL (3.5-10.5)
[2024-10-05 15:02] LABS: Actual Bicarbonate (HCO3a) 32.4 mEq/L (22-28); Analyzer IN Cardio CS ER; CO2 Tension 56.2 mmHg (35.0-45.0); Calcium, Ionized (arterial) 1.35 mmol/L (1.12-1.30); Carboxyhemoglobin (COHb) 0.9 gm% (0.0-3.0); Hematocrit-ABG 33 % (36.0-47.0); Hemoglobin (Hb) 11.3 g/dL (12.0-16.0); O2 Tension (PaO2), arterial 91.9 mmHg (> 80.0); Potassium - ABG Lab 3.66 mmol/L (3.70-5.30); Puncture Site Right Radial artery; pH, Arterial 7.379 (7.35-7.45)
[2024-10-05 15:07] LABS: ALT (SGPT) 16 U/L (8-55); AST (SGOT) 19 U/L (5-34); Albumin 3.3 g/dL (3.4-4.8); Alkaline Phosphatase 104 U/L (40-110); Anion Gap 15 mmol/L (10-20); BUN (Urea Nitrogen) 29 mg/dL (9.8-20.1); Bilirubin, Total 0.3 mg/dL (0.2-1.2); Calc. Creatinine Clearance 0 mL/min (70-130); Calcium 11.5 mg/dL (7.8-10.44); Carbon Dioxide 29 mmol/L (23-31); Chloride 101 mmol/L (98-107); Estimated GFR 35; Globulin 4.9 g/dL (2.4-3.5); Glucose 151 mg/dL (80-115); Lipase 12 U/L (8-78); Magnesium 1.4 mg/dL (1.6-2.6); Potassium 3.8 mmol/L (3.5-5.1); Protein, Total 8.2 g/dL (5.8-8.1); Sodium 141 mmol/L (136-145)
[2024-10-05 15:09] LABS: Troponin I Less than 0.010 ng/mL (< 0.028)
[2024-10-05 16:30] LABS: Bilirubin Neg (Negative); Blood, Urine 150 (Negative); Clarity Clear (Clear); Glucose, Urine (Dipstick) 50 mg/dL (Negative); Ketone, Urine Negative (Negative); Leukocyte 25 (Negative); Nitrite Negative (Negative); Protein, Urine (Dipstick) 500 mg/dl (Neg-Trace); Urobilinogen Normal mg/dL (Less than 2)
[2024-10-05 16:41] LABS: Bacteria/HPF 2+ HPF (None Seen); CAUTI Indications for Culture Pelvic or flank pain; Squamous Epithelial 0-3 HPF (0-3)
[2024-10-05 16:43] LABS: Mucous/LPF 2+ LPF (<2+)
[2024-10-05 16:44] LABS: Transitional Epithelial 0-3 HPF (None Seen)
[2024-10-05 16:45] LABS: Urine Culture Reflex No No
[2024-10-05] MEDS ORDERED: Labetalol HCl 100 MG/20 ML VIAL ONE (17:01)
[2024-10-05] MEDS ORDERED: cefTRIAXone (ROCEPHIN) 2 GM VIAL ONE (17:01)
[2024-10-05 19:15] LABS: Troponin I 0.012 ng/mL (< 0.028)
[2024-10-05] MEDS ORDERED: Sodium Chloride 0.9% 1,000 ML IV SCH (21:30)
[2024-10-05] MEDS ORDERED: Dextrose 5% in Water 1,000 ML IV PRN (21:36)
[2024-10-05] MEDS ORDERED: Dextrose 50% Abboject 50 ML SYRINGE SLOW IVP PRN (21:36)
[2024-10-05] MEDS ORDERED: Glucagon 1 MG/ML KIT IM PRN (21:36)
[2024-10-05] MEDS: Sodium Chloride 0.9% 1,000 ML IV SCH (22:22)
[2024-10-05] MEDS: hydrALAZINE 25 MG TAB PO SCH (22:22)
[2024-10-05] MEDS: Magnesium 2 GM/50 ML(in water) 2 GM in Premix 1 BAG IVPB SCH (22:23)
[2024-10-05] MEDS: Allopurinol 100 MG TAB PO SCH (22:23)
[2024-10-05] MEDS: Rosuvastatin 10 MG TAB PO SCH (22:23)
[2024-10-05] MEDS: Sildenafil Citrate 20 MG TAB PO SCH (22:24)
[2024-10-05 22:28] LABS: Troponin I Less than 0.010 ng/mL (< 0.028)
[2024-10-06 01:49] VITALS: BMI 38.5
[2024-10-06] MEDS: FLU (Fluarix Triv) TS24-25(6MOS UP)/PF 45 MCG/0.5 ML Syringe IM ONE (03:54)
[2024-10-06 03:59] LABS: #Basophils 0.02 10x3/uL (0.0-0.2); #Eosinophils 0.23 10x3/uL (0.0-0.5); #Monocytes 0.46 10x3/uL (0.0-1.1); #Neutrophils 5.17 10x3/uL (1.5-8.4); %Basophils 0.3 % (0.0-2.0); %Eosinophils 3.3 % (0.0-6.0); %Lymphocytes 14.5 % (18.0-47.0); %Monocytes 6.7 % (0.0-10.0); %Neutrophils 74.9 % (40.0-75.0); Hematocrit 39.4 % (34.9-44.5); Hemoglobin 11.4 g/dL (12.0-15.5); Mean Corpuscular HGB CONC 28.9 g/dL (32.0-36.0); Mean Corpuscular Hemoglobin 27.3 pg (27.0-33.0); Mean Corpuscular Volume 94.5 fL (81.6-98.3); Mean Platelet Volume 8.9 fL (7.4-10.4); Platelet Count 164 10x3/uL (150-450); RBC Distribution Width 16.9 % (11.5-14.5); Red Blood Cell (RBC) Count 4.17 10x6/uL (3.90-5.03); White Blood Cell (WBC) Count 6.9 10x3/uL (3.5-10.5)
[2024-10-06 04:10] LABS: Anion Gap 15 mmol/L (10-20); BUN (Urea Nitrogen) 25 mg/dL (9.8-20.1); Calc. Creatinine Clearance 57 mL/min (70-130); Calcium 10.9 mg/dL (7.8-10.44); Carbon Dioxide 28 mmol/L (23-31); Chloride 106 mmol/L (98-107); Estimated GFR 44; Glucose 143 mg/dL (80-115); Potassium 4.8 mmol/L (3.5-5.1); Sodium 144 mmol/L (136-145)
[2024-10-06] MEDS: Levothyroxine Sodium 100 MCG TAB PO SCH (04:42)
[2024-10-06] MEDS: hydrALAZINE 20 MG/ML VIAL SLOW IVP PRN (04:42)
[2024-10-06] MEDS ORDERED: Electrolyte Replacement Protocol 1 EACH FS PRN (08:19)
[2024-10-06] MEDS ORDERED: Lantus 1000 UNITS/10 ML VIAL SC SCH (09:00)
[2024-10-06 09:25] LABS: Phosphorus 3.4 mg/dL (2.3-4.7)
[2024-10-06] MEDS: Enoxaparin 40 MG (0.4 mL) SYRINGE SC SCH (10:26)
[2024-10-06] MEDS: Aspirin 81 mg Enteric Coated Tablet PO SCH (10:27)
[2024-10-06] MEDS: hydrALAZINE 25 MG TAB PO SCH (10:27)
[2024-10-06] MEDS: Metoprolol Tartrate 25 MG TAB PO SCH (10:27)
[2024-10-06] MEDS: Sildenafil Citrate 20 MG TAB PO SCH (10:28)
[2024-10-06] MEDS: Anastrozole 1 MG TAB PO SCH (10:28)
[2024-10-06] MEDS: Insulin Lispro 100 UNIT/ML 10 ML VIAL SC PRN (11:36)
[2024-10-06] MEDS: cefTRIAXone\\ROCEPHIN 2 GM in Sodium Chloride 0.9% 100 ML IVPB SCH (16:26)
[2024-10-06] MEDS ORDERED: cefTRIAXone Sodium 2,000 MG in Syringe 0 ML IVPB SCH (17:00)
[2024-10-06] MEDS: Rosuvastatin 10 MG TAB PO SCH (20:49)
[2024-10-07 04:20] LABS: #Basophils 0.01 10x3/uL (0.0-0.2); #Eosinophils 0.21 10x3/uL (0.0-0.5); #Monocytes 0.36 10x3/uL (0.0-1.1); #Neutrophils 5.33 10x3/uL (1.5-8.4); %Basophils 0.1 % (0.0-2.0); %Eosinophils 3.1 % (0.0-6.0); %Monocytes 5.3 % (0.0-10.0); %Neutrophils 79.2 % (40.0-75.0); Hematocrit 38.4 % (34.9-44.5); Mean Corpuscular HGB CONC 28.6 g/dL (32.0-36.0); Mean Corpuscular Hemoglobin 27.8 pg (27.0-33.0); RBC Distribution Width 17.1 % (11.5-14.5); Red Blood Cell (RBC) Count 3.96 10x6/uL (3.90-5.03); White Blood Cell (WBC) Count 6.7 10x3/uL (3.5-10.5)
[2024-10-07 04:23] LABS: Mean Platelet Volume 10.3 fL (7.4-10.4); Platelet Count 165 10x3/uL (150-450)
[2024-10-07 04:34] LABS: ALT (SGPT) 18 U/L (8-55); AST (SGOT) 27 U/L (5-34); Albumin 2.6 g/dL (3.4-4.8); Alkaline Phosphatase 103 U/L (40-110); Anion Gap 14 mmol/L (10-20); BUN (Urea Nitrogen) 24 mg/dL (9.8-20.1); Bilirubin, Total 0.2 mg/dL (0.2-1.2); Calc. Creatinine Clearance 55 mL/min (70-130); Calcium 10.1 mg/dL (7.8-10.44); Carbon Dioxide 23 mmol/L (23-31); Chloride 110 mmol/L (98-107); Estimated GFR 41; Glucose 129 mg/dL (80-115); Magnesium 2.5 mg/dL (1.6-2.6); Potassium 5.2 mmol/L (3.5-5.1); Protein, Total 6.6 g/dL (5.8-8.1); Sodium 142 mmol/L (136-145)
[2024-10-07 05:27] LABS: Anisocytosis SLIGHT = 6-15 cells (100X) (0-5/hpf); Platelet Adequacy Comment Appears Adequate
[2024-10-07 05:28] LABS: Hypochromia SLIGHT = 6-15 cells (100X) (0-5/hpf); Ovalocytes SLIGHT = 2-5 cells (100X) (0-1/hpf); Polychromasia SLIGHT = 2-3 cells (100X) (0-2/hpf)
[2024-10-07 12:01] LABS: Actual Bicarbonate (HCO3a) 27.7 mEq/L (22-28); Analyzer IN Cardio CS ER; CO2 Tension 54.4 mmHg (35.0-45.0); Carboxyhemoglobin (COHb) 0.3 gm% (0.0-3.0); Hematocrit-ABG 31 % (36.0-47.0); Hemoglobin (Hb) 10.6 g/dL (12.0-16.0); O2 Tension (PaO2), arterial 101.5 mmHg (> 80.0); Potassium - ABG Lab 4.04 mmol/L (3.70-5.30); pH, Arterial 7.325 (7.35-7.45)
[2024-10-07 12:06] LABS: Puncture Site L Radial
[2024-10-07 18:16] LABS: Potassium 4.2 mmol/L (3.5-5.1); Sodium 142 mmol/L (136-145)
[2024-10-07] MEDS: hydrALAZINE 25 MG TAB PO SCH (21:22)
[2024-10-08 04:22] LABS: #Basophils 0.01 10x3/uL (0.0-0.2); #Eosinophils 0.23 10x3/uL (0.0-0.5); #Monocytes 0.41 10x3/uL (0.0-1.1); #Neutrophils 6.33 10x3/uL (1.5-8.4); %Basophils 0.1 % (0.0-2.0); %Eosinophils 2.9 % (0.0-6.0); %Lymphocytes 10.2 % (18.0-47.0); %Monocytes 5.2 % (0.0-10.0); %Neutrophils 81.2 % (40.0-75.0); Hematocrit 36.9 % (34.9-44.5); Hemoglobin 10.3 g/dL (12.0-15.5); Mean Corpuscular HGB CONC 27.9 g/dL (32.0-36.0); Mean Corpuscular Hemoglobin 27.2 pg (27.0-33.0); Mean Corpuscular Volume 97.6 fL (81.6-98.3); Mean Platelet Volume 9.1 fL (7.4-10.4); Platelet Count 164 10x3/uL (150-450); RBC Distribution Width 16.9 % (11.5-14.5); Red Blood Cell (RBC) Count 3.78 10x6/uL (3.90-5.03); White Blood Cell (WBC) Count 7.8 10x3/uL (3.5-10.5)
[2024-10-08 04:37] LABS: Anion Gap 14 mmol/L (10-20); BUN (Urea Nitrogen) 24 mg/dL (9.8-20.1); Calc. Creatinine Clearance 59 mL/min (70-130); Carbon Dioxide 19 mmol/L (23-31); Chloride 111 mmol/L (98-107); Estimated GFR 46; Glucose 134 mg/dL (80-115); Sodium 139 mmol/L (136-145)
[2024-10-08] MEDS: Metoprolol Tartrate 50 MG TAB PO SCH (10:16)
[2024-10-08] MEDS: Gabapentin 300 MG CAP PO SCH (10:17)
[2024-10-08] MEDS: busPIRone HCl 15 MG TAB PO SCH (10:22)
[2024-10-08] MEDS ORDERED: Iopamidol 370 76% 100 ML VIAL ONE (14:23)
[2024-10-08 16:46] VITALS: BP 157/70
[2024-10-08 16:49] VITALS: TEMP 98.1
[2024-10-09 11:05] LABS: Campy jejuni + coli by PCR Negative (Negative); STEC Shiga Toxin 1+2 Negative (Negative); Salmonella spp. by PCR Negative (Negative); Shigella spp + EIEC by PCR Negative (Negative)
[2024-10-10 14:37] LABS: A/G Ratio 0.7 (0.7-1.7); Albumin 2.3 g/dL (2.9-4.4); Alpha 1 0.3 g/dL (0.0-0.4); Alpha 2 0.7 g/dL (0.4-1.0); Beta 1.2 g/dL (0.7-1.3); Globulin, Total 3.2 g/dL (2.2-3.9); M-Spike Not Observed g/dL (Not Observed); Protein Electrophoresis Intrp Note: (.)
== END 2024-10-08 18:15 | disposition home or self-care (01) | DRG 640 ==
LOC: CSHERS 13:49 → CSHTELE 18:24 → OBSVTOIN 10-06 16:32
PROVIDERS: ADMIT Internal Medicine; ATTEND Hospitalist
PROC: 4A133R1 Monitoring of Arterial Saturation, Peripheral, Percutaneous Approach (ICD-10-PCS; principal; 2024-10-05)
DX: E87.5 Hyperkalemia (principal); G93.41 Metabolic encephalopathy; N39.0 Urinary tract infection, site not specified; N17.9 Acute kidney failure, unspecified; J96.11 Chronic respiratory failure with hypoxia; J96.12 Chronic respiratory failure with hypercapnia; I13.0 Hypertensive heart and chronic kidney disease with heart failure and stage 1 through stage 4 chronic kidney disease, or unspecified chronic kidney disease; N18.30 Chronic kidney disease, stage 3 unspecified; D86.9 Sarcoidosis, unspecified; I27.20 Pulmonary hypertension, unspecified; E83.52 Hypercalcemia; E83.42 Hypomagnesemia; D63.8 Anemia in other chronic diseases classified elsewhere; G47.33 Obstructive sleep apnea (adult) (pediatric); E11.22 Type 2 diabetes mellitus with diabetic chronic kidney disease; E11.42 Type 2 diabetes mellitus with diabetic polyneuropathy; E11.65 Type 2 diabetes mellitus with hyperglycemia; K74.60 Unspecified cirrhosis of liver; K21.9 Gastro-esophageal reflux disease without esophagitis; I25.10 Atherosclerotic heart disease of native coronary artery without angina pectoris; Z85.3 Personal history of malignant neoplasm of breast; Z68.35 Body mass index [BMI] 35.0-35.9, adult; Z88.0 Allergy status to penicillin; Z90.11 Acquired absence of right breast and nipple; Z88.8 Allergy status to other drugs, medicaments and biological substances; Z90.49 Acquired absence of other specified parts of digestive tract; Z95.810 Presence of automatic (implantable) cardiac defibrillator
CPT/HCPCS: 36415; 36416; 36600; 51701; 70450; 70551; 71045; 71275; 72148; 74176; 80048; 80053; 81001; 82140; 82306; 82805; 83605; 83630; 83690; 83735; 83880; 83970; 84100; 84146; 84155; 84165; 84443; 84484; 85025; 85379; 87040; 87086; 87428; 87505; 93005; 94660; 94762; 96372; 96374; 96375; 96376; G0378; J0360; J0696; J1650; J1815; J3475; J7030; Q9967